=== PATIENT | female | born 1945 | race Asian ===

== ENCOUNTER 2023-05-19 12:08 | Emergency (ER) | payer MEDICARE, OTHER, SELFPAY ==
[2023-05-19 12:18] VITALS: BP 143/80
--- NOTE | 2023-05-19 13:23 | ED.GENMED ---
History of Present Illness
General
Chief Complaint: Fall
Source: patient and family
Exam Limitations: none
Time Seen by Provider: 05/19/23 12:27
Nursing documentation reviewed up to this point in time: agreed with
Travel History
Have you had any contact with someone who has COVID-19?: No
Do you have any symptoms of coronavirus? Fever > 100 degrees, chills, cough, shortness of breath, sore throat, loss of taste or smell, muscle aches, or headache?: No
History of Present Illness
History of Present Illness:
77-year-old female presenting to the emergency department today after a fall where she fell forward off of her wheelchair when she was not restrained properly she does have a history of hemiplegia to the right side. She hit her right eyebrow.
According to staff she did not lose consciousness no vomiting otherwise acting normally according to the daughter. No additional injuries are apparent.
Past History
Past History
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
Social History
Tobacco: Non-smoker
Alcohol: None
Drug: None
Living: snf
Employment: Disabled
Family History
Family History: Other (reviewed and non-contributory)
Review of Systems
Review of Systems
Allergies reviewed?: Yes
All Other Systems: ROS reviewed and negative except as documented in HPI and ROS
Phy Exam
Physical Exam
Physical Exam:
GENERAL: Alert , in no apparent distress
EYE: pupils equal and reactive
NECK: Supple, no significant adenopathy.
ENT: Laceration to right eyebrow 2.5 cm in length subcutaneous in depth, o/p clr, mmm.
CARDIAC: Regular rate and rhythm .
LUNGS: Clear breath sounds bilaterally, no acute respiratory distress, no wheezes/rales/rhonchi
ABDOMEN: Soft, without focal tenderness, no r/g, no cvat
NEUROLOGICAL: Alert, no significant movement from the patient's right upper and right lower extremity. Does have a history of stroke this is her baseline according to daughter.
SKIN: Warm and dry, skin intact.
MUSCULOSKELETAL: No edema, well perfused.
PSYCH: Normal and appropriate interaction.
Course
Orders/Labs/Results
Orders:
Orders
05/19/23 12:33
CT Head W/o Iv Contrast Urgent
Reason For Exam: unwitnessed fall
Vital Signs
Initial and Last Documented VS:
Initial Vital Signs
Temp Resp
98.5 F 20
05/19/23 12:09 05/19/23 12:09
Last Documented Vital Signs
Temp Pulse Resp BP Pulse Ox
97.2 F 60 17 143/80 97
05/19/23 12:18 05/19/23 12:18 05/19/23 12:18 05/19/23 12:18 05/19/23 12:18
Procedures
Laceration Closure
Right Lateral Eye brow:
Status of Wound: clean
Size of Wound in cm: 2.5
Description of Wound Edges: sharp
Preparation: cleaned with saline
Anesthesia: 1% Lidocaine with epi
Revision/Debridement: minor revision and irrigate-direct pressure
Wound exploration: explored to base- no FB and no tendon involvement
Type of Closure: single layer closure
Skin Closure Material: 5-0 chromic gut
Number of sutures: 3
MDM/Problems Addressed
MDM/Problems Addressed:
77-year-old female presenting to the emergency department today after falling forward off of her wheelchair. She hit her right eyebrow has a laceration. Otherwise acting normally according to the daughter no signs of any additional injury
otherwise. No neck pain baseline neurologic status. Otherwise CT was obtained did not show any emergent findings or bleeding. Laceration closed. Patient stable for discharge return precautions given.
*Critical Care Note
Total Time (30-74mins, 75-104mins- exclusive of procedures): Not Applicable
ED Attending Note
-
Portions of this chart may have been created with voice recognition software.� Occasional wrong word or��sound alike� substitutions may have occurred due to the inherent limitations of voice recognition software.
Discharge Plan
Departure
Patient Disposition: Home (Routine Discharge)
Date of Disposition: 05/19/23
Time of Disposition: 13:44
Patient with high blood pressure during this ER visit?: No
Condition: Good
Covid-19: Not Applicable
Discharge Problem:
Fall, Laceration of eyebrow
Instructions: Laceration Repair With Stitches (DC)
Prescriptions:
No Action
acetaminophen 325 MG tablet
650 mg PO Q4HPRN PRN (Reason: MILD PAIN,TEMP>100.4)
acetaminophen 325 MG tablet
650 mg PO Q12
trazodone 50 MG tablet
50 mg PO HS
aspirin 81 MG tablet,chewable
81 mg PO DAILY
hydralazine 50 MG tablet
50 mg PO Q12
metoprolol tartrate 25 MG tablet
25 mg PO BID
omeprazole 40 mg Capsule,Delayed Release(Dr/Ec)
40 mg PO DAILY
magnesium hydroxide [Milk of Magnesia] 400 mg/5 mL Suspension
30 ml PO HS PRN (Reason: CONSTIPATION)
amlodipine 10 mg tablet
10 mg PO HS
hydrocortisone 1 % Cream
1 applic TOPICAL BID
Rx Instructions:
FOR 14 DAYS START 09/29/22
bisacodyl [Dulcolax (bisacodyl)] 10 mg Suppository
10 mg GA DAILY PRN (Reason: IF MOM INEFFECTIVE)
sertraline 50 mg Tablet
75 mg PO DAILY
Referrals:
Nickolas Bruner DO [Family Provider] -
Activity Restrictions/Additional Instructions:
You came to the emergency department today with concerns of laceration to right eyebrow. Here this was cleaned thoroughly and closed with 3 absorbable sutures. Please keep the area clean and covered over the next 7 days. Sutures should dissolve
over the next 2 weeks or so. You also had a head CT here which did not show any emergent findings. Return to the emergency department for any worsening, new or concerning symptoms.
Note to nursing staff: Please clean the laceration with bar soap gently silenced on the affected area gently rinse and pat dry. Please do this once daily.
Interventions
Interventions:
*Risk Screen - Suicide Last Done: 05/19/23 12:09
*General Assessment Last Done: 05/19/23 12:09
*Neglect/Abuse Screening Last Done: 05/19/23 12:09
ED-Musculoskeletal Assessment Last Done: 05/19/23 13:34
ED- Neurological Assessment Last Done: 05/19/23 13:34
ED-Skin Assessment Last Done: 05/19/23 13:34
== END 2023-05-19 17:35 | disposition home or self-care (01) ==
LOC: EMR 12:08
PROVIDERS: EMERGENCY PHYSICIAN Emergency Medicine; FAMILY PHYSICIAN Student in an Organized Health Care Education/Training Program
DX: S01.111A Laceration without foreign body of right eyelid and periocular area, initial encounter (principal); W05.0XXA Fall from non-moving wheelchair, initial encounter; E11.9 Type 2 diabetes mellitus without complications; E78.00 Pure hypercholesterolemia, unspecified; I10 Essential (primary) hypertension; K21.9 Gastro-esophageal reflux disease without esophagitis; Z86.73 Personal history of transient ischemic attack (TIA), and cerebral infarction without residual deficits
CPT/HCPCS: 99284; 12011; 70450

== ENCOUNTER → 2023-06-21 10:08 | Outpatient (REF) | payer MEDICARE, OTHER, SELFPAY ==
[2023-06-21 11:10] LABS: Urine Albumin Trace (Neg - Trace); Urine Bilirubin Negative (Negative); Urine Character Clear (Clear); Urine Color Yellow; Urine Glucose Negative (Negative); Urine Ketone Negative (Negative); Urine Leukocyte Trace (Negative); Urine Nitrite Negative (Negative); Urine Occult Blood 2+ (Negative); Urine Urobilinogen Negative (Neg - 1+)
[2023-06-21 11:39] LABS: Urine Mucus Few; Urine Squamous Cell >30 /LPF (Few)
[2023-06-21 11:41] LABS: Urine Amorphous Seen; Urine Bacteria Few (Negative); Urine White Cell 0-2 /HPF (0-5)
== END ==
LOC: OLABN 10:08
PROVIDERS: ATTENDING PHYSICIAN Student in an Organized Health Care Education/Training Program
DX: R35.0 Frequency of micturition (principal)
CPT/HCPCS: 81003; 81015; 87086

== ENCOUNTER → 2025-03-22 11:30 | Outpatient (REF) | payer MEDICARE, OTHER, SELFPAY ==
[2025-03-22 12:09] LABS: Urine Character Clear (Clear)
[2025-03-22 14:21] LABS: Urine Red Blood Cell None Seen /HPF (0-2)
== END ==
LOC: OLABN 11:30
PROVIDERS: ATTENDING PHYSICIAN Student in an Organized Health Care Education/Training Program
DX: R35.0 Frequency of micturition (principal); Z79.84 Long term (current) use of oral hypoglycemic drugs
CPT/HCPCS: 81003; 81015; 87086

== ENCOUNTER → 2025-03-23 11:30 | Outpatient (REF) | payer MEDICARE, OTHER, SELFPAY ==
[2025-03-23 11:47] LABS: Hematocrit 37.8 % (37.0-47.0); Hemoglobin 12.1 g/dL (12.0-16.0); Mean Corp Hgb Conc. 32.0 g/dL (33.0-37.0); Mean Corpuscular Volume 85.7 fL (81.0-99.0); Nucleated Red Blood Cells % 0 %; Platelet Count 265 10^3/uL (130-400); Red Cell Dist. Width 14.2 % (11.5-14.5)
[2025-03-23 15:37] LABS: ALT (SGPT) 11 U/L (0-35); AST (SGOT) 25 U/L (14-36); Albumin 3.9 g/dl (3.5-5.0); Alkaline Phosphatase 66 U/L (38-126); Blood Urea Nitrogen 15 mg/dl (7-17); Calcium 9.1 mg/dl (8.4-10.2); Carbon Dioxide 27 mmol/L (22-30); Chloride 106 mmol/L (98-107); Glucose 112 mg/dl (70-99); Potassium 4.3 mmol/L (3.5-5.1); Sodium 137 mmol/L (135-145); Total Protein 7.3 g/dl (6.3-8.2); eGFR > 60.00
== END ==
LOC: OLABN 11:30
PROVIDERS: ATTENDING PHYSICIAN Student in an Organized Health Care Education/Training Program
DX: E78.5 Hyperlipidemia, unspecified (principal); Z79.84 Long term (current) use of oral hypoglycemic drugs
CPT/HCPCS: 36415; 80053; 85025

== ENCOUNTER → 2025-03-24 07:20 | Outpatient (REF) | payer MEDICARE, OTHER, SELFPAY ==
[2025-03-24 14:02] LABS: Urine Character Clear (Clear)
[2025-03-24 14:30] LABS: Urine Red Blood Cell 0-2 /HPF (0-2); Urine Urothelial Cell 0-2 /LPF (FEW)
[2025-03-24 14:31] LABS: Urine White Cell 26-30 /HPF (0-5)
== END ==
LOC: OLABN 07:20
PROVIDERS: ATTENDING PHYSICIAN Student in an Organized Health Care Education/Training Program
DX: Z00.00 Encounter for general adult medical examination without abnormal findings (principal); Z79.84 Long term (current) use of oral hypoglycemic drugs
CPT/HCPCS: 81003; 81015; 87086

== ENCOUNTER → 2025-03-26 07:35 | Outpatient (REF) | payer MEDICARE, OTHER, SELFPAY ==
[2025-03-26 17:57] LABS: Urine Character Cloudy (Clear)
[2025-03-26 19:46] LABS: Urine Squamous Cell 21-25 /LPF (Few)
[2025-03-26 19:47] LABS: Urine Red Blood Cell 16-20 /HPF (0-2); Urine White Cell 30-40 /HPF (0-5)
== END ==
LOC: OLABN 07:35
PROVIDERS: ATTENDING PHYSICIAN Student in an Organized Health Care Education/Training Program
DX: Z00.00 Encounter for general adult medical examination without abnormal findings (principal); Z79.84 Long term (current) use of oral hypoglycemic drugs
CPT/HCPCS: 81003; 81015; 87086

== ENCOUNTER → 2025-03-29 13:22 | Outpatient (REF) | payer MEDICARE, OTHER, SELFPAY ==
[2025-03-29 14:08] LABS: Urine Character Cloudy (Clear)
[2025-03-29 14:29] LABS: Urine Squamous Cell >30 /LPF (Few)
[2025-03-29 14:30] LABS: Urine White Cell 70-80 /HPF (0-5)
[2025-03-29 14:31] LABS: Urine Red Blood Cell 0-2 /HPF (0-2)
== END ==
LOC: OLABN 13:22
PROVIDERS: ATTENDING PHYSICIAN Student in an Organized Health Care Education/Training Program
DX: Z00.00 Encounter for general adult medical examination without abnormal findings (principal); Z79.84 Long term (current) use of oral hypoglycemic drugs
CPT/HCPCS: 81003; 81015; 87086